=== PATIENT | female | born 1980 | race Caucasian/White ===

== ENCOUNTER 2016-09-01 13:22 | Emergency (ER) | payer MEDICAID ==
[2016-09-01 15:25] VITALS: BP 151/91
== END 2016-09-01 15:25 | disposition home or self-care (01) ==
LOC: ED 13:22
DX: H66.92 Otitis media, unspecified, left ear (principal); R03.0 Elevated blood-pressure reading, without diagnosis of hypertension
CPT/HCPCS: J0690; J2001

== ENCOUNTER 2018-04-17 18:33 | Emergency (ER) | payer MEDICAID ==
[~2018-04-17] VITALS: Ht 157.5 cm; Wt 111.6 kg
[2018-04-17 19:17] VITALS: Ht 157.5 cm; Wt 111.6 kg
[2018-04-17 22:09] VITALS: BP 133/72
== END 2018-04-17 22:09 | disposition home or self-care (01) ==
LOC: ED 18:33
DX: J02.9 Acute pharyngitis, unspecified (principal); J06.9 Acute upper respiratory infection, unspecified; H10.9 Unspecified conjunctivitis
CPT/HCPCS: J0561; J1100; J1885